=== PATIENT | male | born 1980 | race Caucasian/White ===

== ENCOUNTER 2021-07-03 11:30 | Emergency (ER) | payer OTHER ==
[~2021-07-03] VITALS: Ht 180.3 cm; Wt 108.9 kg
[2021-07-03] MEDS ORDERED: ONDA4ODT MM (12:34)
== END 2021-07-03 12:37 | disposition home or self-care (01) ==
LOC: ER 11:30
DX: U07.1 COVID-19 (principal)
CPT/HCPCS: 99284

== ENCOUNTER → 2022-10-30 | Outpatient (CLI) | payer OTHER ==
[~2022-10-30] MED LIST: ONDA4ODT MM
[2022-10-31 09:09] LABS: HBSAG SCREEN Negative (Negative); HCV ANTIBODY <0.1 (0.0-0.9)
[2022-10-31 10:45] LABS: HIV AB/P24 AG SCREEN Non Reactive (Non Reactive)
== END | disposition home or self-care (01) ==
LOC: LAB SHORT 10:30
PROVIDERS: Registered Nurse Community Health
DX: Z11.3 Encounter for screening for infections with a predominantly sexual mode of transmission (principal)
CPT/HCPCS: 86592; 86803; 87340; 87389

== ENCOUNTER → 2022-10-30 | Outpatient (CLI) | payer OTHER ==
[2022-11-01 19:06] LABS: CHLAMYDIA BY NAA Negative (Negative); GONOCOCCUS BY NAA Negative (Negative); TRICH VAG BY NAA Negative (Negative)
== END | disposition home or self-care (01) ==
LOC: LAB 10:30 → LAB SHORT 10:30
PROVIDERS: Registered Nurse Community Health
DX: Z11.3 Encounter for screening for infections with a predominantly sexual mode of transmission (principal)
CPT/HCPCS: 87491; 87591; 87661